=== PATIENT | female | born 2000 | race Caucasian/White ===

== ENCOUNTER 2018-02-16 18:22 | Emergency (ER) | payer SELFPAY ==
[~2018-02-16] VITALS: Ht 170.2 cm; Wt 64.0 kg
[2018-02-16] MEDS ORDERED: HYDR-3511 PO (18:43)
[2018-02-16] MEDS ORDERED: HYDROCODONE/APAP 7.5/325MG 1 TAB TABLET PO PRN (23:45)
[2018-02-17 00:23] VITALS: BP 122/65
== END 2018-02-17 00:24 | disposition home or self-care (01) ==
LOC: ER 19:24
DX: S62.102D Fracture of unspecified carpal bone, left wrist, subsequent encounter for fracture with routine healing (principal); X58.XXXD Exposure to other specified factors, subsequent encounter
CPT/HCPCS: 99283